=== PATIENT | male | born 1965 | race Asian ===

== ENCOUNTER 2016-10-24 20:52 | Emergency (ER) | payer OTHER, BC ==
[2016-10-24 21:14] VITALS: BP 145/93; PULSE 84; TEMP 99; BMI 28.1
[2016-10-24] MEDS ORDERED: FLUORESCEIN NA 1 EA STRIP ONE (22:47)
[2016-10-24] MEDS ORDERED: TETRACAINE 0.5% OPHTH SOLN 2 ML BOTTLE ONE (22:47)
[2016-10-24] MEDS ORDERED: CIPROFLOXACIN HCL 0.3% OPHTH 2.5ML BOTTLE ONE (22:53)
--- NOTE | 2016-10-24 22:59 | PDOC ---
History of Present Illness - General Chief Complaint: Foreign Body (FB) Stated Complaint: metal flake/rust in right eye Time Seen by Provider: 10/24/16 20:57 - History of Present Illness Initial Comments: This 51-year-old man presents with history of injury to his right eye at about 1 PM today. Patient was repairing a car while's standing beneath it. Flake of metal flew into his right eye. Patient states that he quickly washed his right eye out, submerging his face under water for a while. He had no pain/foreign body sensation in his eye until approximately 7 PM tonight when he began to have pain/redness/swelling around the eye. He denies any change in vision. He has not had any discharge or crusting of the eye. 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 - Past Medical History Allergies/Adverse Reactions: Allergies Allergy/AdvReac Type Severity Reaction Status Date / Time No Known Allergies Allergy Verified 10/24/16 20:54 Home Medications: Ambulatory Orders Alprazolam [Xanax] 0.5 mg PO ASDIR PRN 11/01/12 Amlodipine Bes/Olmesartan Med [Ani 5-20 mg Tablet] 1 each PO DAILY 11/01/12 Duloxetine [Cymbalta] 60 mg PO DAILY 11/01/12 Pravastatin Sodium [Pravachol] 40 mg PO HS 11/01/12 Zolpidem Tartrate [Ambien] 10 mg PO DAILY 11/01/12 Tramadol HCl 50 mg PO DAILY 10/24/16 Anemia: No Asthma: No Cancer: No HTN: Yes Hypercholesterolemia: Yes Psychiatric Problems: Yes (anxiety) - Surgical History Abdominal Surgery: No Appendectomy: Yes Cardiac Surgery: No - Immunization History Td Vaccination: Yes TDAP Vaccination: Yes Immunization Up to Date: Yes - Psycho/Social/Smoking Cessation Hx Anxiety: Yes Suicidal Ideation: No Smoking Status: No Smoking History: Never smoked Number of Cigarettes Smoked Daily: 0 Information on smoking cessation initiated: No Substance Use Type: None *Physical Exam - Vital Signs Last Vital Signs Temp Pulse Resp BP Pulse Ox 99 F 84 18 145/93 98 10/24/16 20:56 10/24/16 20:56 10/24/16 20:56 10/24/16 20:56 10/24/16 20:56 Medical Decision Making - Medical Decision Making Fluorescein exam confirms with small wedge-shaped corneal abrasion of the right upper cornea (11 o'clock) *DC/Admit/Observation/Transfer Diagnosis at time of Disposition: Corneal abrasion Qualifiers: Encounter type: initial encounter Laterality: right Qualified Code(s): S05.01XA - Injury of conjunctiva and corneal abrasion without foreign body, right eye, initial encounter - Discharge Dispostion Disposition: HOME Condition at time of disposition: Stable - Referrals Referrals: Jean Leon MD [Staff Physician] - - Patient Instructions Printed Discharge Instructions: Corneal Abrasion Additional Instructions: cipro eye drops, 2 drops in right eye every 4 hours while awake for 5 days ibuprofen/naproxen/acetaminophen as needed for pain return to ER if pain/redness/vision worsens followup with Dr Leon within the next 2 days
== END 2016-10-24 23:02 | disposition home or self-care (01) ==
LOC: FER 20:52
DX: S05.01XA Injury of conjunctiva and corneal abrasion without foreign body, right eye, initial encounter (principal); X58.XXXA Exposure to other specified factors, initial encounter; Y93.89 Activity, other specified; Y92.59 Other trade areas as the place of occurrence of the external cause; Y99.0 Civilian activity done for income or pay; I10 Essential (primary) hypertension; E78.00 Pure hypercholesterolemia, unspecified; F41.9 Anxiety disorder, unspecified
CPT/HCPCS: 99282-25